=== PATIENT | female | born 1965 | race Caucasian/White ===

== ENCOUNTER → 2024-04-14 13:48 | Outpatient (REF) | payer OTHER, SELFPAY | LOC: WDC 13:48 | PROVIDERS: ATTENDING PHYSICIAN Family Medicine | DX: Z12.31 Encounter for screening mammogram for malignant neoplasm of breast (principal) | CPT/HCPCS: 77063; 77067 ==

== ENCOUNTER 2024-09-12 15:13 | Emergency (ER) | payer OTHER, SELFPAY ==
[2024-09-12 15:17] VITALS: BP 143/87
--- NOTE | 2024-09-12 16:27 | ED.GENMED ---
History of Present Illness
General
Chief Complaint: Musculo-Skeletal Complaint
Time Seen by Provider: 09/12/24 15:47
History of Present Illness
History of Present Illness:
59-year-old female presents the emergency department for evaluation of a left wrist injury. She had a fall while rollerskating in [place] 5 days ago and was seen in urgent care, got x-rays revealing a distal radius fracture. She was given a
premade Colles' splint with sling. Today she was in the process of trying to find a follow-up injection specialist when her insurance encouraged her to come to the ER for evaluation
Review of Systems
Review of Systems
Allergies reviewed?: Yes
All Other Systems: ROS reviewed and negative except as documented in HPI and ROS
Phy Exam
Physical Exam
Physical Exam:
GEN: Well appearing, NAD, WDWN
HEENT: Oral mucosa moist, no scleral icterus
Cardiac: Regular rate
Lung: No respiratory distress, no tachypnea
MSK: Significant swelling and ecchymosis to the left distal forearm and wrist, neurovascularly intact distal to the injury
Skin: Good color, no pallor or jaundice, no rashes
Neuro: AO x3, moves all extremities freely
Psych: Calm, cooperative
Course
Orders/Labs/Results
Orders:
Orders
09/12/24 15:17
CR Wrist - Left Min 3 Views Urgent
Comment:
Reason For Exam: L wrist injury
Vital Signs
Initial and Last Documented VS:
Initial Vital Signs
Temp Pulse Resp BP Pulse Ox
98.3 F 62 16 143/87 97
09/12/24 15:17 09/12/24 15:17 09/12/24 15:17 09/12/24 15:17 09/12/24 15:17
Last Documented Vital Signs
Temp Pulse Resp BP Pulse Ox
98.3 F 62 16 143/87 97
09/12/24 15:17 09/12/24 15:17 09/12/24 15:17 09/12/24 15:17 09/12/24 16:28
MDM/Problems Addressed
MDM/Problems Addressed:
Patient was placed in a fiberglass short arm splint, no need for sling at this point. Unfortunately due to her insurance issues she will have to be seen at [facility] orthopedics as opposed to local Ortho
*Pulse Oximetry
SaO2: 97
Oxygen Mode of Delivery: Room air
Patient hypoxic: no
*Critical Care Note
Total Time (30-74mins, 75-104mins- exclusive of procedures): Not Applicable
ED Attending Note
-
Portions of this chart may have been created with voice recognition software.� Occasional wrong word or��sound alike� substitutions may have occurred due to the inherent limitations of voice recognition software.
Discharge Plan
Departure
Patient Disposition: Home (Routine Discharge)
Date of Disposition: 09/12/24
Time of Disposition: 16:27
Patient with high blood pressure during this ER visit?: No
Discharge Problem:
Distal radius fracture, left
Instructions: Wrist Fracture (DC)
Referrals:
Hossein Paz MD [Non-Admitting Privileges, Orthopedics]
Referral Note: Call for ER follow up visit; request [place] offices if possible
Interventions
Interventions:
*Nursing Disposition Last Done: 09/12/24 17:02
ED-Skin Assessment Last Done: 09/12/24 15:30
ED-Musculoskeletal Assessment Last Done: 09/12/24 15:30
Discharge Date and Time
Discharge Date/Time: 09/12/24 17:02
Print Language: DUTCH
== END 2024-09-12 17:02 | disposition home or self-care (01) ==
LOC: EMR 15:13
PROVIDERS: EMERGENCY PHYSICIAN Student in an Organized Health Care Education/Training Program; FAMILY PHYSICIAN Family Medicine
DX: S52.502A Unspecified fracture of the lower end of left radius, initial encounter for closed fracture (principal); S50.12XA Contusion of left forearm, initial encounter; S60.212A Contusion of left wrist, initial encounter; W18.30XA Fall on same level, unspecified, initial encounter; Y93.51 Activity, roller skating (inline) and skateboarding
CPT/HCPCS: 99283; 29125; 73110

== ENCOUNTER → 2025-02-01 12:36 | Outpatient (REF) | payer OTHER, SELFPAY | LOC: EMG 12:36 | PROVIDERS: ATTENDING PHYSICIAN Orthopaedic Surgery; FAMILY PHYSICIAN Family Medicine | DX: R20.0 Anesthesia of skin (principal); M25.532 Pain in left wrist; G56.02 Carpal tunnel syndrome, left upper limb | CPT/HCPCS: 95886; 95909 ==

== ENCOUNTER 2025-02-15 06:12 | Day surgery (SDC) | payer OTHER, SELFPAY ==
[2025-02-15 08:59] VITALS: BMI 27.3
[2025-02-15 09:08] VITALS: BP 129/84
[2025-02-15] MEDS: TYLENOL 1000 MG PO (09:22)
[2025-02-15 10:27] VITALS: BP 137/65
== END 2025-02-15 10:47 | disposition home or self-care (01) ==
LOC: SDS 06:12
PROVIDERS: ATTENDING PHYSICIAN Orthopaedic Surgery
DX: G56.02 Carpal tunnel syndrome, left upper limb (principal)
CPT/HCPCS: 64721